=== PATIENT | male | born 1985 | race Caucasian/White ===

== ENCOUNTER 2018-06-13 10:15 | Emergency (ER) | payer OTHER, BC ==
--- NOTE | 2018-06-13 10:46 | EDM.PDOC ---
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 He denies any other injury, neck pain, and states he did not hit his head. Denies shortness of breath, hemoptysis, or difficulty breathing. Onset: Today Duration: Constant Location: Reports: Chest, Back, Other (Ribs) Quality: Reports: Ache Severity: Moderate Improves with: Reports: Immobilization, Rest Worsens with: Reports: Breathing, Movement Associated Symptoms: Reports: No Other Symptoms Middle Chest Pain Score (Numeric/FACES): 5 - Related Data Allergies Allergy/AdvReac Type Severity Reaction Status Date / Time No Known Allergies Allergy Verified 06/13/18 10:24 Home Meds: Home Meds . [No Known Home Meds] 06/13/18 [History] Past Medical History HEENT History: Reports: Impaired Vision Cardiovascular History: Reports: None Respiratory History: Reports: None Gastrointestinal History: Reports: None Genitourinary History: Reports: None Musculoskeletal History: Reports: None Neurological History: Reports: None Psychiatric History: Reports: None Endocrine/Metabolic History: Reports: None Hematologic History: Reports: None Immunologic History: Reports: None Oncologic (Cancer) History: Reports: None Dermatologic History: Reports: None - Past Surgical History Head Surgeries/Procedures: Reports: None Social & Family History - Family History Family Medical History: Noncontributory - Tobacco Use Smoking Status *Q: Current Every Day Smoker Years of Tobacco use: 12 Packs/Tins Daily: 2 - Caffeine Use Caffeine Use: Reports: Coffee - Recreational Drug Use Recreational Drug Use: No - Living Situation & Occupation Living situation: Reports: with Family Occupation: Employed ED ROS GENERAL - Review of Systems Review Of Systems: ROS reveals no pertinent complaints other than HPI. ED EXAM, GENERAL - Physical Exam Exam: See Below Exam Limited By: No Limitations General Appearance: Alert, WD/WN, No Apparent Distress Nose: Normal Inspection Throat/Mouth: Normal Inspection, Normal Lips, Normal Voice, No Airway Compromise Head: Atraumatic, Normocephalic Neck: Normal Inspection, Supple, Non-Tender, Full Range of Motion Respiratory/Chest: No Respiratory Distress, Lungs Clear, Normal Breath Sounds, No Accessory Muscle Use, Other (tender to palpation at mid-anterior chest and B/ L middle ribs) Cardiovascular: Normal Peripheral Pulses, Regular Rate, Rhythm, No Edema, No Gallop, No JVD, No Murmur, No Rub GI/Abdominal: Normal Bowel Sounds, Soft, Non-Tender, No Organomegaly, No Distention, No Abnormal Bruit, No Mass Back Exam: Paraspinal Tenderness (thoracic), Vertebral Tenderness (mid-thoracic spine). No: CVA Tenderness (L), CVA Tenderness (R) Extremities: Normal Inspection, Normal Range of Motion, Non-Tender, Normal Capillary Refill, No Pedal Edema Neurological: Alert, Oriented, CN II-XII Intact, Normal Cognition, Normal Gait, No Motor/Sensory Deficits Psychiatric: Normal Affect, Normal Mood Skin Exam: Warm, Dry, Intact, Normal Color, No Rash Course - Vital Signs Last Recorded V/S: Last Vital Signs Temp 36.8 C 06/13/18 10:26 Pulse 76 06/13/18 11:36 Resp 16 06/13/18 11:36 BP 116/76 06/13/18 11:36 Pulse Ox 99 06/13/18 11:36 - Radiology Interpretation Free Text/Narrative:: [facility] Final Radiology Report Call: [phone] assistance Online chat: [email or web address] Toxicology Name: ANALISA HOLLY Age: 33Years M Date: 06/13/2018 SSN: -- : [id number] Study: XR RIBS 4 VIEWS W PA CHEST BILAT Requesting Physician: ARMEN ZAMUDIO Images: 5 Addl Studies: Provided Clinical History: Contrast: Contrast Medium: Contrast Amount: Contrast Method: Page 1 of 2 EXAM: XR Bilateral Ribs and AP Chest, 4 or More Views EXAM DATE/TIME: 06/13/2018 10:43 AM CLINICAL HISTORY: The patient is 33 years old and is male; Signs and symptoms; Other: Injury b/l ribs, chest, tspine. Skid steer caustics loader struck solid object at full speed, pt struck safety bar with mid-anterior chest TECHNIQUE: Frontal and oblique views of the bilateral ribs and frontal view of the chest. COMPARISON: No relevant prior studies available. FINDINGS: Lungs: Unremarkable. No consolidation. Pleural space: Unremarkable. No pneumothorax. Heart: Unremarkable. No cardiomegaly. Mediastinum: Unremarkable. Bones/joints: Question nondisplaced fracture versus overlying artifact along the medial aspect of the right 10th rib posteriorly. No other fracture is identified. IMPRESSION: 1. No evidence for acute pulmonary disease. 2. Question nondisplaced fracture versus artifact along the medial right 10th rib posteriorly. Correlate with point tenderness. Thank you for allowing us to participate in the care of your patient. ANALISA HOLLY | Final Radiology Report CONFIDENTIALITY STATEMENT This report is intended only for use by the referring physician, and only in accordance with law. If you received this in error, call [phone]. Page 2 of 2 Dictated and Authenticated by: Blas Lew MD 06/13/2018 11:44 AM Central Time ([place] & [place]) [facility] Final Radiology Report Call: [phone] assistance Online chat: [email or web address] Toxicology Name: ANALISA HOLLY Age: 33Years M Date: 06/13/2018 SSN: -- : [id number] Study: XR SPINE THORACIC 2 VIEWS Requesting Physician: ARMEN ZAMUDIO Images: 3 Addl Studies: Provided Clinical History: Contrast: Contrast Medium: Contrast Amount: Contrast Method: Page 1 of 2 EXAM: XR Thoracic Spine, 2 Views EXAM DATE/TIME: 06/13/2018 10:54 AM CLINICAL HISTORY: The patient is 33 years old and is male; Signs and symptoms; Other: Skid steer struck solid object at full speed, pt struck safety bar with mid-anterior chest, mid thoracic pain TECHNIQUE: Frontal and lateral views of the thoracic spine. 3 images total. COMPARISON: CR - Ribs 3V w Chest Bi 06/13/2018 10:43:17 AM FINDINGS: The upper thoracic vertebral bodies are not well visualized on the lateral view( s). Vertebral body heights are intact. Alignment is maintained. The pedicles appear intact. The questionable nondisplaced fracture of the right 10th rib on the rib radiographs is not evident. The disc spaces appear grossly unremarkable. IMPRESSION: No significant abnormality. CT would be more sensitive to fracture as clinically appropriate. Thank you for allowing us to participate in the care of your patient. Dictated and Authenticated by: Blas Lew MD Departure - Departure Time of Disposition: 12:11 Disposition: Home, Self-Care 01 Condition: Good Clinical Impression: Chest wall contusion Qualifiers: Encounter type: initial encounter Laterality: unspecified laterality Qualified Code(s): S20.219A - Contusion of unspecified front wall of thorax, initial encounter - Discharge Information *PRESCRIPTION DRUG MONITORING PROGRAM REVIEWED*: Not Applicable *COPY OF PRESCRIPTION DRUG MONITORING REPORT IN PATIENT ROMANA: Not Applicable Instructions: Chest Contusion, Adult, [id number] Forms: ED Department Discharge Additional Instructions: Activity as tolerated. Use over the counter Ibuprofen (Motrin/Advil) 200mg: Take 3 tablets by mouth every 6 hours as needed for pain. Take with food. Do not exceed 2400mg (12 tablets) in 24 hours. Follow up in clinic if not improved in 5 to 7 days."
== END 2018-06-13 12:15 | disposition home or self-care (01) ==
LOC: DL.ED 10:15
DX: S20.219A Contusion of unspecified front wall of thorax, initial encounter (principal); F17.210 Nicotine dependence, cigarettes, uncomplicated; W22.8XXA Striking against or struck by other objects, initial encounter
CPT/HCPCS: 71111; 72070; 99283